=== PATIENT | female | born 1950 | race American Indian/Alaskan Native ===

== ENCOUNTER 2017-07-26 12:44 | Outpatient (CLI) | payer MEDICARE ==
[2017-07-26 15:38] LABS: Blood Urea Nitrogen 17 mg/dL (7-17)
--- NOTE | 2017-07-26 19:52 | Cat Scan Report ---
FINAL REPORT PROCEDURE: CT chest without and with contrast. TECHNIQUE: Computerized axial tomography of the chest was performed before and after the IV injection of iodinated nonionic contrast. HISTORY: Colon cancer. COMPARISON: No prior studies are available for comparison. TECHNICAL QUALITY: Satisfactory. FINDINGS: The trachea and central bronchi appear normal. The lungs are grossly clear. There are no definite pulmonary nodules. There are no pleural effusions. The thoracic aorta has a normal caliber. There is atherosclerotic calcification scattered in the thoracic aorta. The central pulmonary arteries enhance normally. There are a few small nonspecific mediastinal lymph nodes. The heart size is normal. The thoracic skeleton appears intact. IMPRESSION: No significant abnormality identified.
--- NOTE | 2017-07-26 20:02 | Cat Scan Report ---
FINAL REPORT PROCEDURE: CT abdomen and pelvis without and with contrast. TECHNIQUE: Computerized axial tomography of the abdomen and pelvis was performed without contrast followed by computerized axial tomography of the abdomen and pelvis after the IV injection of iodinated nonionic contrast. HISTORY: Colon cancer. COMPARISON: CT abdomen and pelvis 12/16/2015. FINDINGS: The lung bases are grossly clear. There are no pleural effusions. The heart size is normal. The liver, pancreas and spleen appear normal. Cholecystectomy clips are present. There is no biliary dilatation. The adrenal glands are not enlarged. Both kidneys appear normal in size and configuration. There are some tiny renal cortical cysts. There is a benign-appearing calcification adjacent to the left renal pelvis. The abdominal aorta has a normal caliber. There is no retroperitoneal adenopathy. The gastrointestinal tract is unremarkable. There are a few diverticula scattered in the colon. A normal appendix is visible. The bladder is unremarkable. The uterus has been removed. The regional skeleton appears intact. IMPRESSION: Previous cholecystectomy and hysterectomy. No evidence of metastatic disease.
== END 2017-07-26 12:45 | disposition home or self-care (01) ==
LOC: CT 12:44
PROVIDERS: ATTEND Internal Medicine Hematology & Oncology
DX: C18.6 Malignant neoplasm of descending colon (principal); D50.8 Other iron deficiency anemias; K63.9 Disease of intestine, unspecified; N28.1 Cyst of kidney, acquired; K57.30 Diverticulosis of large intestine without perforation or abscess without bleeding; I10 Essential (primary) hypertension; Z90.49 Acquired absence of other specified parts of digestive tract; Z90.710 Acquired absence of both cervix and uterus
CPT/HCPCS: 36415; 71270; 74178; 82565; 84520; Q9967

== ENCOUNTER 2018-10-07 12:48 | Outpatient (CLI) | payer MEDICARE ==
[2018-10-07 13:20] LABS: Hematocrit 40.9 % (30.3-42.9); Mean Corpuscular HGB Conc 32 % (30-34); Mean Corpuscular Volume 79 fl (79-97); Platelet Count 298 K/mm3 (140-440); Red Blood Count 5.17 M/mm3 (3.65-5.03); Red Cell Distribution Width 15.7 % (13.2-15.2)
[2018-10-07 13:31] LABS: INR 1.1 (0.87-1.13)
[2018-10-07 13:32] LABS: Partial Thromboplastin Time 25.7 Sec. (24.2-36.6)
[2018-10-07 13:41] LABS: BUN/Creatinine Ratio 19; Blood Urea Nitrogen 19 mg/dL (7-17); Hemolysis Index 4
--- NOTE | 2018-10-07 18:12 | Cat Scan Report ---
. CT scan of the chest abdomen and pelvis with contrast INDICATION: COLON CANCER. Left breast mass TECHNIQUE: All CT scans at this location are performed using the following dose modulation technique: Automated exposure control. Helical slices were obtained through the chest, abdomen, and pelvis following the a dministration of 100 cc of Omnipaque 300 COMPARISON: CT scan dated 07/26/2017 FINDINGS: Chest: There is some linear density in the lateral left lung base which is decreased from the prior s tudy. This likely represents some atelectasis or possibly scar. No pulmonary nodules or masses are id entified. Some mild peripheral interstitial disease are similar to the previous study. No adenopathy is seen. There are small axillary nodes bilaterally. These are not pathologically enlar ged. Heart size is normal. Atherosclerotic calcifications are noted in the aorta. ABDOMEN: There is a small low-density lesion in the medial segment left lobe of the liver. This measu res 4 mm in diameter and is not seen on prior study. The spleen, pancreas, adrenal glands, and kidneys are unchanged in appearance. Atherosclerotic calcif ications are noted in the aorta and iliac arteries. The bowel is unremarkable. Pelvis: There is a 2.3 cm right adnexal cyst appears unchanged. No adenopathy is seen. There is ather osclerotic disease in the iliac arteries. On review of bone windows, no acute osseous abnormalities are seen. IMPRESSION: 1. There is a new 4 mm low-density lesion in the left lobe of the liver which is indeterminate. This is not seen on prior imaging. Continued follow-up is recommended. There is atherosclerotic disease. There is a 2.3 cm right adnexal cyst which is unchanged prior study. There are small axillary lymph nodes bilaterally. These are not pathologically enlarged. Signer Name: Duy Simon MD Signed: 10/07/2018 6:08 PM Workstation Name: [id number]
== END 2018-10-07 12:49 | disposition home or self-care (01) ==
LOC: CT 12:48
PROVIDERS: ATTEND Internal Medicine Hematology & Oncology
DX: I70.8 Atherosclerosis of other arteries (principal); E27.8 Other specified disorders of adrenal gland; C18.6 Malignant neoplasm of descending colon; D50.8 Other iron deficiency anemias; R59.0 Localized enlarged lymph nodes; E78.00 Pure hypercholesterolemia, unspecified; E66.01 Morbid (severe) obesity due to excess calories; I11.0 Hypertensive heart disease with heart failure; I50.9 Heart failure, unspecified; Z90.710 Acquired absence of both cervix and uterus
CPT/HCPCS: 36415; 71260; 74177; 80048; 85027; 85610; 85730; Q9967

== ENCOUNTER 2018-11-04 09:34 | Outpatient (CLI) | payer MEDICARE ==
--- NOTE | 2018-11-04 10:43 | Ultrasound Report ---
Left breast ultrasound INDICATION: Abnormal mammogram COMPARISON: Bilateral mammogram 03/06/2018 In the 6:00 position, 2 to 3 cm from the nipple, matching the site of the radiographic abnormality, a very superficial 8mm mildly complicated cyst is seen. Mild internal echoes are noted which were seen to be mobile by the technologist. Through transmission is seen. No significant vascularity is noted. No significant wall thickening is seen. The cyst lies adjacent to the skin but is not clearly a seba ceous cyst penetrating the skin layer. No other lesions are seen. IMPRESSION: A mildly complicated cyst correlates with the mammographic abnormality. Recommend follow- up ultrasound in 6 months. BI-RADS 3, probably benign Signer Name: Dereje Rodriguez MD Signed: 11/04/2018 10:38 AM Workstation Name: [id number]
== END 2018-11-04 09:35 | disposition home or self-care (01) ==
LOC: SPVWC 09:34
PROVIDERS: ATTEND Internal Medicine Hematology & Oncology
DX: N63.20 Unspecified lump in the left breast, unspecified quadrant (principal); E78.00 Pure hypercholesterolemia, unspecified; I10 Essential (primary) hypertension; Z90.710 Acquired absence of both cervix and uterus

== ENCOUNTER 2019-01-30 10:57 | Outpatient (CLI) | payer MEDICARE ==
[2019-01-30 12:03] LABS: Blood Urea Nitrogen 28 mg/dL (7-17)
--- NOTE | 2019-01-30 14:37 | Cat Scan Report ---
CT CHEST WITH CONTRAST INDICATION / CLINICAL INFORMATION: COLON CANCER WITH LIVER LESION/COMPARE WITH LAST ONE. Restaging of colon cancer TECHNIQUE: Axial CT images were obtained through the chest after 100 cc of Omnipaque 300 IV contrast. Sagittal a nd coronal reformatted images. All CT scans at this location are performed using CT dose reduction fo r ALARA by means of automated exposure control. COMPARISON: 10/07/2018 FINDINGS: HEART: Stable borderline heart size. THORACIC AORTA: No significant abnormality. MEDIASTINUM and HOMER: No significant abnormality. LUNGS: No acute air space or interstitial disease. Minor linear scarring in the posterior left upper lobe is unchanged. No evidence for nodule, mass or infiltrate. PLEURA: No significant pleural effusion. No pneumothorax. SKELETAL SYSTEM: No significant abnormality. ADDITIONAL FINDINGS: None. IMPRESSION: No evidence for metastatic disease to the chest. Stable findings since 10/07/2018. Signer Name: Amol Diallo Jr, MD Signed: 01/30/2019 2:33 PM Workstation Name: [id number]
--- NOTE | 2019-01-30 14:42 | Cat Scan Report ---
CT ABDOMEN AND PELVIS WITH CONTRAST HISTORY: COLON CANCER WITH LIVER LESION/COMPARE WITH LAST. Restaging of colon cancer. Liver lesion. COMPARISON: 10/07/2018 TECHNIQUE: Axial CT images were obtained through the abdomen and pelvis after 100 cc of Omnipaque 300 intravenously. Sagittal and coronal reformatted images. All CT scans at this location are performed using CT dose reduction for ALARA by means of automated exposure control. FINDINGS: CT ABDOMEN: Liver: No significant abnormality. The previously described 4 mm hypodense lesion in the left hepatic lobe is not demonstrated on today's exam. No suspicious liver lesion. Biliary: Cystectomy. Spleen: No significant abnormality. Unenlarged. Pancreas: No significant abnormality. Adrenals: No significant abnormality. Kidneys: There is focal scarring or atrophy at the inferior pole of the left kidney. The kidneys and collecting systems are within normal limits otherwise. Lymphatics: No lymphadenopathy. Vasculature: Moderate aortic calcifications are noted. 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 No dissection or aneurysm. Bowel/Peritoneum: Surgical suture line in the sigmoid colon is noted. No recurrent GI mass, obstructi on or inflammation is appreciated. Normal appendix. CT PELVIS: : Hysterectomy has been performed. A 2.9 cm right ovarian cyst is unchanged. The left ovary is norm al. The bladder is empty but unremarkable. Osseous Structures: No significant abnormality. Additional Findings: None IMPRESSION: No evidence for recurrent or metastatic disease. Previously described millimetric liver lesion is no longer seen. 2.9 cm right ovarian cyst, unchanged. Chronic findings as described above. Signer Name: Amol Diallo Jr, MD Signed: 01/30/2019 2:37 PM Workstation Name: [id number]
== END 2019-01-30 10:58 | disposition home or self-care (01) ==
LOC: CT 10:57
PROVIDERS: ATTEND Internal Medicine Hematology & Oncology
DX: C18.6 Malignant neoplasm of descending colon (principal); K63.9 Disease of intestine, unspecified; D50.8 Other iron deficiency anemias; N83.291 Other ovarian cyst, right side; I50.9 Heart failure, unspecified; J44.9 Chronic obstructive pulmonary disease, unspecified; E66.01 Morbid (severe) obesity due to excess calories; E78.00 Pure hypercholesterolemia, unspecified; I11.0 Hypertensive heart disease with heart failure; Z87.891 Personal history of nicotine dependence; Z90.710 Acquired absence of both cervix and uterus
CPT/HCPCS: 36415; 71260; 74177; 82565; 84520; Q9967

== ENCOUNTER 2020-04-02 13:23 | Outpatient (CLI) | payer MEDICARE ==
--- NOTE | 2020-04-02 17:53 | Cat Scan Report ---
CT CHEST, ABDOMEN, AND PELVIS WITH IV CONTRAST INDICATION / CLINICAL INFORMATION: DISEASE OF THE INTESTINE. TECHNIQUE: Axial CT images were obtained through the chest, abdomen, and pelvis after IV contrast. All CT scans at this location are performed using CT dose reduction for ALARA by means of automated exposure contr ol. COMPARISON: Prior CT chest, abdomen and pelvis with contrast dated 01/30/2019 FINDINGS: HEART: Moderate coronary artery calcifications. THORACIC AORTA: Moderate atherosclerotic calcification without acute abnormality. MEDIASTINUM and HOMER: Interval enlargement of previously noted mediastinal lymphadenopathy, the large st node now measures 1.2 cm short axis in the precarinal region (previously 1.0 cm). LUNGS: Chronic interstitial lung findings are similar to prior exam and most predominant in the bibas ilar region. No soft tissue density pulmonary nodules. PLEURA: No significant pleural effusion. No pneumothorax. ADDITIONAL CHEST FINDINGS: Prominent bilateral axillary lymph nodes are not enlarged according to CT size criteria. LIVER: No significant abnormality. Specifically, no focal hepatic lesion. GALLBLADDER: Cholecystectomy. BILE DUCTS: No significant abnormality. PANCREAS: No significant abnormality. SPLEEN: No significant abnormality. ADRENALS: No significant abnormality. RIGHT KIDNEY / URETER: Tiny simple renal cysts are stable. No calcified stones or hydronephrosis. LEFT KIDNEY / URETER: Small simple renal cysts are stable. Left lower pole parenchymal scarring and d ystrophic calcifications stable since prior exam. No calcified stones or hydronephrosis. STOMACH and SMALL BOWEL: No significant abnormality. No mechanical bowel obstruction. COLON: Colonic diverticulosis without evidence of diverticulitis. Post surgical changes are noted in the area of the sigmoid colon with a stable anastomotic suture. No recurrent soft tissue irregularity . APPENDIX: No significant abnormality. PERITONEUM: No free fluid. No free air. No fluid collection. LYMPH NODES: No significant adenopathy of the abdomen or pelvis.. AORTA and ARTERIES: Moderate atherosclerotic calcification without acute abnormality. IVC and VEINS: No significant abnormality. URINARY BLADDER: No significant abnormality. REPRODUCTIVE ORGANS: Previously noted cyst right simple ovarian cyst stable in size since prior exam. Prior hysterectomy. ADDITIONAL FINDINGS: Postsurgical changes to the midline ventral abdominal wall. SKELETAL SYSTEM: Mild multilevel degenerative changes are noted of the spine. No aggressive osseous l esions. IMPRESSION: 1. Mild interval enlargement of mediastinal lymphadenopathy, the largest lymph node measures 1.2 cm i n short axis in the precarinal region (previously 1.0 cm). 2. Otherwise findings are stable since prior exam dated 01/30/2019. Please see above for full details. Signer Name: Jared Zafar MD Signed: 04/02/2020 5:49 PM Workstation Name: [id number]
== END 2020-04-02 13:24 | disposition home or self-care (01) ==
LOC: CT 13:23
PROVIDERS: ATTEND Internal Medicine Hematology & Oncology
DX: C18.6 Malignant neoplasm of descending colon (principal); K63.9 Disease of intestine, unspecified; D50.8 Other iron deficiency anemias; I25.10 Atherosclerotic heart disease of native coronary artery without angina pectoris; I70.0 Atherosclerosis of aorta; R59.0 Localized enlarged lymph nodes; N28.1 Cyst of kidney, acquired; N28.89 Other specified disorders of kidney and ureter; K76.9 Liver disease, unspecified; N83.201 Unspecified ovarian cyst, right side; K57.30 Diverticulosis of large intestine without perforation or abscess without bleeding; M47.819 Spondylosis without myelopathy or radiculopathy, site unspecified; Z90.49 Acquired absence of other specified parts of digestive tract; Z90.710 Acquired absence of both cervix and uterus
CPT/HCPCS: 36415; 71260; 74177; 82565; 84520; Q9967

== ENCOUNTER 2020-05-27 07:30 | Outpatient (CLI) | payer MEDICARE | END 2020-05-27 07:31 | disposition home or self-care (01) | LOC: PET 07:30 | PROVIDERS: ATTEND Internal Medicine Hematology & Oncology | DX: C18.6 Malignant neoplasm of descending colon (principal); K63.9 Disease of intestine, unspecified; D50.8 Other iron deficiency anemias | CPT/HCPCS: 82962 ==

== ENCOUNTER 2020-08-03 09:00 | Outpatient (CLI) | payer MEDICARE ==
--- NOTE | 2020-08-03 10:11 | Mammography Report ---
DIGITAL SCREENING MAMMOGRAM WITH CAD, 08/03/2020 CLINICAL INFORMATION / INDICATION: Routine screening TECHNIQUE: Digital bilateral 2D mammography was obtained in the craniocaudal and mediolateral obliqu e projections. This examination was interpreted with the benefit of Computer-Aided Detection analysis . COMPARISON: 01/07/2015, 03/06/2018, 12/23/2012 FINDINGS: Breast Density: The breasts are heterogeneously dense, which may obscure small masses. No dominant mass, suspicious calcifications, or architectural distortion in either breast. Benign-appearing calcifications are noted. Known cyst of fluctuating size on the left is mildly more prominent. IMPRESSION: No mammographic evidence of malignancy. Follow up recommendation: Routine yearly BI-RADS Category 2: Benign. A "normal" or negative report should not discourage follow up or biopsy of a clinically significant f inding. A written summary of these findings will be mailed to the patient. The patient will be entered into a mammography reporting system which will generate a reminder letter for the patient's next appointmen t at the appropriate interval. [employer] recommends yearly mammograms starting at age 40 and continuing as l aura as a woman is in good health. Breast MRI is recommended for women with an approximate 20-25% or greater lifetime risk of breast cancer, including women with a strong family history of breast or ova michaelle cancer or who have been treated for Hodgkin's disease. Signer Name: Dereje Rodriguez MD Signed: 08/03/2020 10:06 AM Workstation Name: [id number]
== END 2020-08-03 09:01 | disposition home or self-care (01) ==
LOC: MAMMO 09:00
PROVIDERS: ATTEND Internal Medicine Hematology & Oncology
DX: Z12.31 Encounter for screening mammogram for malignant neoplasm of breast (principal); N64.89 Other specified disorders of breast
CPT/HCPCS: 77067

== ENCOUNTER 2020-10-07 09:12 | Outpatient (CLI) | payer MEDICARE ==
[2020-10-07 10:38] LABS: Blood Urea Nitrogen 19 mg/dL (7-17)
--- NOTE | 2020-10-07 14:02 | Ultrasound Report ---
ABDOMINAL ULTRASOUND HISTORY: Abdominal pain and colon cancer COMPARISON: CT dated 04/02/2020 TECHNIQUE: Multiple real-time ultrasonographic grayscale images were obtained of the abdomen. FINDINGS: Aorta: No significant abnormality. IVC: No significant abnormality. Pancreas: Obscured by poor acoustic windows. Liver: Diffusely increased echogenicity consistent with hepatic steatosis. Gallbladder: Inapparent consistent with surgical absence. Common bile duct: 4 mm. Right kidney: No significant abnormality. No hydronephrosis. Kidney measures 12.8 cm. Spleen: Normal size and appearance measuring 8.7 cm in length. Left kidney: There are multiple cystic lesions at the lower pole, largest measuring up to 1.2 x 2.7 c m as seen on image 62. These correspond to left lower pole cysts as seen on prior CT. No hydronephros is. Kidney measures 11.9 cm. Additional findings: None. IMPRESSION: 1. No acute abnormality identified. 2. Hepatic steatosis. Signer Name: Rai Campoverde MD Signed: 10/07/2020 1:57 PM Workstation Name: [id number]
--- NOTE | 2020-10-07 14:29 | Cat Scan Report ---
CT CHEST, ABDOMEN, AND PELVIS WITH IV CONTRAST INDICATION: DISEASE OF INTESTINE. TECHNIQUE: Axial CT images were obtained through the chest, abdomen, and pelvis after 100 cc Omnipaque [address] scans at this location are performed using CT dose reduction for ALARA by means of aut omated exposure control. COMPARISON: CT chest, abdomen and pelvis with contrast from 04/02/2020. FINDINGS: HEART: No significant abnormality. THORACIC AORTA AND ARTERIES: There is moderate generalized coronary atherosclerosis. The aorta is nor mal in caliber and contains diffuse calcified and noncalcified plaques. There is mild great vessel at herosclerosis. No other significant abnormalities. LYMPH NODES: Multifocal mediastinal lymphadenopathy has not significantly changed. A advertising account representative p recarinal lymph node on image 39 of series 2 measures 1.2 cm in short axis dimension. No new signific ant adenopathy. TRACHEA AND BRONCHI:No significant abnormality. LUNGS: No suspicious nodule, mass or consolidation. PLEURA: No significant pleural effusion. No pneumothorax. LIVER: No significant abnormality. GALLBLADDER: Surgically absent. BILE DUCTS: No significant abnormality. PANCREAS: No significant abnormality. SPLEEN: No significant abnormality. ADRENALS: No significant abnormality. RIGHT KIDNEY and URETER: No significant abnormality. LEFT KIDNEY and URETER: Stable tiny simple left renal cysts. There is stable left lower renal pole sc arring without other significant abnormalities. STOMACH and SMALL BOWEL: No significant abnormality. COLON: Generalized colonic diverticulosis is again noted without evidence of diverticulitis. Stable p ostoperative changes are seen along the sigmoid colon. No other significant abnormality. APPENDIX: No significant abnormality. PERITONEUM: No free fluid. No free air. No fluid collection. LYMPH NODES: No significant adenopathy. ABDOMINAL AORTA and ARTERIES: The aorta is normal in caliber with moderate generalized at the scleros is. IVC and VEINS: No significant abnormality. URINARY BLADDER: No significant abnormality. REPRODUCTIVE ORGANS: Prior hysterectomy. Unchanged right ovarian/adnexal cyst measuring up to 3.1 cm on image 79 of series 604. No other significant abnormality. ADDITIONAL FINDINGS: None. BONES: No acute abnormality or other significant interval changes. IMPRESSION: 1. Stable mediastinal lymphadenopathy without other evidence of recurrent/metastatic disease. 2. Additional findings as above are unchanged from the 04/02/[address] CT. Signer Name: Reilly Calvert MD Signed: 10/07/2020 2:25 PM Workstation Name: [id number]
== END 2020-10-07 09:13 | disposition home or self-care (01) ==
LOC: US 09:12
PROVIDERS: ATTEND Internal Medicine Hematology & Oncology
DX: C18.6 Malignant neoplasm of descending colon (principal); K63.9 Disease of intestine, unspecified; D50.8 Other iron deficiency anemias; I25.10 Atherosclerotic heart disease of native coronary artery without angina pectoris; N28.1 Cyst of kidney, acquired; K76.0 Fatty (change of) liver, not elsewhere classified; K57.30 Diverticulosis of large intestine without perforation or abscess without bleeding; Z90.710 Acquired absence of both cervix and uterus
CPT/HCPCS: 36415; 71260; 74177; 76700; 82565; 84520; Q9967